=== PATIENT | male | born 1950 | race Caucasian/White ===

== ENCOUNTER 2017-01-06 00:25 | Emergency (ER) | payer OTHER ==
[~2017-01-06] VITALS: Ht 185.4 cm; Wt 93.0 kg
[2017-01-06 00:32] VITALS: BP 175/95; PULSE 76; RESP 20; TEMP 97.7; O2SAT 98
[2017-01-06] MEDS ORDERED: ZANT150T2 PO (00:42)
[2017-01-06] MEDS ORDERED: SODIUM CHLOR 0.9% 1000 ML INJ 1,000 ML IV ONE (00:54)
[2017-01-06] MEDS ORDERED: TAMSULOSIN HCL 0.4 MG CAP PO ONE (01:00)
[2017-01-06] MEDS ORDERED: KETOROLAC TROMETHAMINE 30 MG/ML (IVP) VIAL IV PUSH ONE (01:00)
[2017-01-06] MEDS ORDERED: SODIUM CHLORIDE 0.9% FLUSH 10 ML FLUSH IVF PRN (01:00)
[2017-01-06] MEDS ORDERED: HYDROmorphone HCL PF 1 MG/ML VIAL IV PUSH ONE (01:00)
[2017-01-06] MEDS ORDERED: ONDANSETRON HCL 4 MG/2 ML VIAL IV PUSH ONE (01:00)
--- NOTE | 2017-01-06 01:01 | PD ---
HPI Chief Complaint: Flank/Kidney Pain Time Seen by Provider: 00:51 Travel History International Travel<30 days: No Contact w/Intl Traveler<30days: No Traveled to known affect area: No History of Present Illness HPI The patient is a 66-year-old male that complains of sudden onset of left flank pain at approximately 11:30 tonight. He has never had a kidney stone previously. The pain is sharp, sudden onset and a 9/10 in intensity. He also has nausea and vomiting. About 6 years ago he had a right nephrectomy for renal carcinoma. PFSH Past Medical History Cancer: Yes (renal) Diminished Hearing: No Gastrointestinal Disorders: Yes GERD: Yes Genitourinary: Yes Kidney Stones: Yes Tetanus Vaccination: Unknown Influenza Vaccination: Yes Past Surgical History Abdominal Surgery: Yes (laparotomy for ulcers) Genitourinary Surgery: Yes (rt nephrectomy) Social History Alcohol Use: No Tobacco Use: No Substance Use: No Allergies-Medications (Allergen,Severity, Reaction): Coded Allergies: No Known Allergies (Verified Allergy, Unknown, 01/06/17) Reported Meds & Prescriptions Reported Meds & Active Scripts Active Reported Zantac (Ranitidine HCl) 150 Mg Tab 150 Mg PO DAILY Review of Systems Except as stated in HPI: all other systems reviewed are Neg Physical Exam Narrative GENERAL: The patient is alert, oriented 3 in moderate to severe distress with his left flank pain. His vital signs show blood pressure 175/95 but are otherwise normal. SKIN: Focused skin assessment warm/dry. HEAD: Atraumatic. Normocephalic. EYES: Pupils equal and round. No scleral icterus. No injection or drainage. ENT: No nasal bleeding or discharge. Mucous membranes pink and moist. NECK: Trachea midline. No JVD. CARDIOVASCULAR: Regular rate and rhythm. No murmur appreciated. RESPIRATORY: No accessory muscle use. Clear to auscultation. Breath sounds equal bilaterally. GASTROINTESTINAL: Abdomen soft, with minimal tenderness to direct palpation around the left leg, nondistended. Hepatic and splenic margins not palpable. No guarding or rebound is present. Specifically, no pulsatile masses are noted. MUSCULOSKELETAL: No obvious deformities. No clubbing. No cyanosis. No edema. NEUROLOGICAL: Awake and alert. No obvious cranial nerve deficits. Motor grossly within normal limits. Normal speech. PSYCHIATRIC: Appropriate mood and affect; insight and judgment normal. Data Data Last Documented VS Vital Signs Date Time Temp Pulse Resp B/P (MAP) Pulse Ox O2 Delivery O2 Flow Rate FiO2 01/06/17 01:20 71 18 153/82 (105) 98 Room Air 01/06/17 00:32 97.7 Orders Orders Complete Blood Count With Diff (01/06/17 00:54) Basic Metabolic Panel (Bmp) (01/06/17 00:54) Urinalysis - C+S If Indicated (01/06/17 00:54) Ct Abd/Pel W/O Iv Contrast (01/06/17 00:54) Ecg Monitoring (01/06/17 00:54) Iv Access Insert/Monitor (01/06/17 00:54) Ketorolac Inj (Toradol Inj) (01/06/17 01:00) Ondansetron Inj (Zofran Inj) (01/06/17 01:00) Sodium Chloride 0.9% Flush (Ns Flush) (01/06/17 01:00) Sodium Chlor 0.9% 1000 Ml Inj (Ns 1000 M (01/06/17 00:54) Hydromorphone Pf Inj (Dilaudid Pf Inj) (01/06/17 01:00) Tamsulosin (Flomax) (01/06/17 01:00) Labs Laboratory Tests Test 01/06/17 01:00 White Blood Count 7.8 TH/MM3 Red Blood Count 5.88 MIL/MM3 Hemoglobin 14.6 GM/DL Hematocrit 45.7 % Mean Corpuscular Volume 77.8 FL Mean Corpuscular Hemoglobin 24.8 PG Mean Corpuscular Hemoglobin Concent 31.9 % Red Cell Distribution Width 15.9 % Platelet Count 288 TH/MM3 Mean Platelet Volume 8.2 FL Neutrophils (%) (Auto) 65.0 % Lymphocytes (%) (Auto) 24.1 % Monocytes (%) (Auto) 7.4 % Eosinophils (%) (Auto) 2.7 % Basophils (%) (Auto) 0.8 % Neutrophils # (Auto) 4.9 TH/MM3 Lymphocytes # (Auto) 1.9 TH/MM3 Monocytes # (Auto) 0.6 TH/MM3 Eosinophils # (Auto) 0.2 TH/MM3 Basophils # (Auto) 0.1 TH/MM3 CBC Comment AUTO DIFF Blood Urea Nitrogen 19 MG/DL Creatinine 1.60 MG/DL Random Glucose 114 MG/DL Calcium Level 9.0 MG/DL Sodium Level 141 MEQ/L Potassium Level 4.1 MEQ/L Chloride Level 107 MEQ/L Carbon Dioxide Level 24.8 MEQ/L Anion Gap 9 MEQ/L Estimat Glomerular Filtration Rate 43 ML/MIN MDM Medical Decision Making Medical Screen Exam Complete: Yes Emergency Medical Condition: Yes Medical Record Reviewed: Yes Interpretation(s) The CT abdomen pelvis shows a 2 mm distal left ureteral calculus causing mild obstruction. The right kidney is surgically absent. Differential Diagnosis Left ureteral stone, abdominal aortic aneurysm-unlikely, urinary tract infection , dissecting aneurysm-extremely unlikely Narrative Course It is now 1:46 AM and the patient feels no pain. He likely passed this small 2 mm stone. The patient wants me to write medications in case the pain comes back and I will. Procedures EKG Prior to Arrival: No EKG Not Completed: EKG Not Medically Necessary Diagnosis Primary Impression: Right ureteral calculus Additional Instructions: If the pain returns, take the Motrin regularly, 1 tablet 3 times daily. Also take the Flomax regularly, 1 tablet by mouth daily. The rest of the medications are as needed, Percocet for pain every 4 hours and Zofran for nausea every 6 hours. Follow-up with her urologist if the pain returns. Med/Other Pt SpecificInfo: Prescription(s) given Scripts Ibuprofen (Ibuprofen) 800 Mg Tab 800 MG PO TID, #20 TAB 0 Refills Prov: Lenin Arrington MD 01/06/17 Ondansetron (Zofran) 4 Mg Tab 4 MG PO Q6HR Y for NAUSEA OR VOMITING, #15 TAB 0 Refills Prov: Lenin Arrington MD 01/06/17 Oxycodone-Acetaminophen (Percocet) 7.5-325 mg Tab 1 TAB PO Q4H Y for PAIN, #15 TAB 0 Refills Prov: Lenin Arrington MD 01/06/17 Tamsulosin (Flomax) 0.4 Mg Cap 0.4 MG PO HS for Manage Prostate Problems, #15 CAP 0 Refills Prov: Lenin Arrington MD 01/06/17 Disposition: 01 DISCHARGE HOME Condition: Stable Lenin Arrington MD Jan 06, 2017 01:01
[2017-01-06 01:12] LABS: AUTOMATED NEUTROPHIL # 4.9 TH/MM3 (1.8-7.7); BASOPHIL # 0.1 TH/MM3 (0-0.2); BASOPHIL % 0.8 % (0.0-2.0); EOSINOPHIL # 0.2 TH/MM3 (0-0.4); EOSINOPHIL % 2.7 % (0.0-4.0); HEMATOCRIT 45.7 % (39.0-51.0); LYMPH % 24.1 % (9.0-44.0); LYMPHOCYTE # 1.9 TH/MM3 (1.0-4.8); MEAN CELL VOLUME 77.8 FL (80.0-100.0); MEAN CORPUSCULAR HEMOGLOBIN 24.8 PG (27.0-34.0); MEAN CORPUSCULAR HGB CONC 31.9 % (32.0-36.0); MONO % 7.4 % (0.0-8.0); PLATELET COUNT 288 TH/MM3 (150-450); RED BLOOD COUNT 5.88 MIL/MM3 (4.50-5.90); RED CELL DISTRIBUTION WIDTH 15.9 % (11.6-17.2); WHITE BLOOD COUNT 7.8 TH/MM3 (4.0-11.0)
[2017-01-06 01:20] VITALS: BP 153/82; PULSE 71; RESP 18; O2SAT 98
[2017-01-06 01:20] LABS: POTASSIUM 4.1 MEQ/L (3.5-5.1)
[2017-01-06 01:22] LABS: BICARBONATE 24.8 MEQ/L (21.0-32.0)
[2017-01-06 01:24] LABS: HEMO FLAGS AUTO DIFF
--- NOTE | 2017-01-06 01:32 | RADRPT ---
EXAM DATE/TIME: 01/06/2017 01:10 [facility] COMPARISON: No previous studies available for comparison. INDICATIONS : Left flank pain. ORAL CONTRAST: No oral contrast ingested. RADIATION DOSE: 22.53 CTDIvol (mGy) MEDICAL HISTORY : None SURGICAL HISTORY : Nephrectomy, right. ENCOUNTER: Initial ACUITY: 1 day PAIN SCALE: 9/10 LOCATION: Left flank TECHNIQUE: Volumetric scanning of the abdomen and pelvis was performed. Using automated exposure control and ad justment of the mA and/or kV according to patient size, radiation dose was kept as low as reasonably achievable to obtain optimal diagnostic quality images. DICOM format image data is available electro nically for review and comparison. FINDINGS: LOWER LUNGS: The visualized lower lungs are clear. LIVER: Homogeneous density without lesion. There is no dilation of the biliary tree. Cholecystectomy clips. SPLEEN: Normal size without lesion. PANCREAS: Within normal limits. KIDNEYS: The left kidney show some mild hydronephrosis. There is a 2 mm stone in the distal left ureter causin g only mild hydroureter. Right kidney surgically absent ADRENAL GLANDS: Within normal limits. VASCULAR: There is no aortic aneurysm. BOWEL/MESENTERY: Suspect a gastrojejunostomy. ABDOMINAL WALL: Within normal limits. Old ostomy in the right side of the abdomen. Some atrophy of the rectus muscula ture RETROPERITONEUM: There is no lymphadenopathy. BLADDER: No wall thickening or mass. REPRODUCTIVE: Within normal limits. INGUINAL: There is no lymphadenopathy or hernia. MUSCULOSKELETAL: Marked sclerosis throughout the lumbar spine. CONCLUSION: 2 mm distal left ureteral calculus causing mild obstruction. Right kidney surgically absent. Suspect a gastrojejunostomy. Rodger Tellez MD on January 06, 2017 at 1:28 Board Certified Radiologist. This report was verified electronically.
[2017-01-06] MEDS ORDERED: TAMS5CAP PO (01:50)
[2017-01-06] MEDS ORDERED: PERC7.5T13 PO (01:50)
[2017-01-06] MEDS ORDERED: IBUP1TAB7 PO (01:50)
[2017-01-06] MEDS ORDERED: ZOFR4TAB PO (01:50)
[2017-01-06 01:53] LABS: PLATELET ESTIMATE SMEAR NORMAL (NORMAL); PLATELET MORPHOLOGY CLUMPED (NORMAL); SCAN/DIFF AUTO DIFF CONFIRMED
[2017-01-06] MEDS ORDERED: ALUMINUM/MAGNESIUM/SIMETH 30 ML CUP PO ONE (02:00)
[2017-01-06 02:12] VITALS: BP 132/84; PULSE 74; RESP 18; O2SAT 98
== END 2017-01-06 02:14 | disposition home or self-care (01) ==
LOC: PHED 00:25
DX: N20.1 Calculus of ureter (principal); Z85.520 Personal history of malignant carcinoid tumor of kidney
CPT/HCPCS: 74176; 80048; 85025; 96361; 96374; 96375; 99285; J1170; J1885; J2405; J7030

== ENCOUNTER 2017-06-04 20:51 | Emergency (ER) | payer OTHER ==
[~2017-06-04] VITALS: Ht 185.4 cm; Wt 90.1 kg
[~2017-06-04 20:51] MED LIST: IBUP1TAB7 PO; PERC7.5T13 PO; TAMS5CAP PO; ZANT150T2 PO; ZOFR4TAB PO
[2017-06-04 20:55] VITALS: BP 145/64; PULSE 111; RESP 18; TEMP 98.4; O2SAT 96
[2017-06-04] MEDS ORDERED: ONDANSETRON HCL 4 MG/2 ML VIAL IV PUSH ONE (21:45)
[2017-06-04] MEDS ORDERED: SODIUM CHLOR 0.9% 1000 ML INJ 1,000 ML IV ONE (21:45)
[2017-06-04 22:00] VITALS: BP 127/77; PULSE 108; RESP 18; O2SAT 92
--- NOTE | 2017-06-04 22:15 | PD ---
HPI Chief Complaint: GI Complaint Time Seen by Provider: 21:30 Travel History International Travel<30 days: No Contact w/Intl Traveler<30days: No Traveled to known affect area: No History of Present Illness HPI 66-year-old male who presents to emergency room with complaints of not feeling well, patient reports that he has not been feeling well yesterday. Patient reports that today, he felt fine all morning, 1 hour prior to coming to emergency room he felt "shaky" in his arms, reports that he felt nauseous and vomited 3 times. Patient reports that he has no pain at this time, reports that he just does not feel well. Patient denies any chest pain or shortness of breath, denies any abdominal pain. Denies headache or dizziness . patient denies any cough or congestion, no sick contacts. Patient reports that he does have one kidney as he has history of kidney cancer in the past. Patient cannot localize why he is not feeling well. PFSH Past Medical History Cancer: Yes (renal) Diminished Hearing: No Gastrointestinal Disorders: Yes GERD: Yes Genitourinary: Yes Kidney Stones: Yes Past Surgical History Abdominal Surgery: Yes (laparotomy for ulcers) Genitourinary Surgery: Yes (rt nephrectomy) Social History Alcohol Use: No Tobacco Use: No Substance Use: No Allergies-Medications (Allergen,Severity, Reaction): Coded Allergies: No Known Allergies (Verified Allergy, Unknown, 06/04/17) Reported Meds & Prescriptions Reported Meds & Active Scripts Active Flomax (Tamsulosin HCl) 0.4 Mg Cap 0.4 Mg PO HS Reported Amlodipine (Amlodipine Besylate) 5 Mg Tab 5 Mg PO DAILY Pantoprazole (Pantoprazole Sodium) 40 Mg Tab 40 Mg PO DAILY Tylenol (Acetaminophen) 325 Mg Tab 650 Mg PO Q6H PRN Review of Systems General / Constitutional: Positive: Chills, No: Fever Eyes: No: Visual changes HENT: No: Headaches Cardiovascular: No: Chest Pain or Discomfort Respiratory: No: Cough, Shortness of Breath Gastrointestinal: Positive: Nausea, Vomiting, No: Diarrhea, Abdominal Pain Genitourinary: No: Dysuria Musculoskeletal: No: Pain Skin: No Rash Neurologic: Positive: Weakness Psychiatric: No: Depression Endocrine: No: Polydipsia Hematologic/Lymphatic: No: Easy Bruising Physical Exam Narrative GENERAL: Moderate distress SKIN: Focused skin assessment warm/dry. HEAD: Atraumatic. Normocephalic. EYES: Pupils equal and round. No scleral icterus. No injection or drainage. ENT: No nasal bleeding or discharge. Mucous membranes pink and moist. NECK: Trachea midline. No JVD. CARDIOVASCULAR: Tachycardia. No murmur appreciated. RESPIRATORY: No accessory muscle use. Clear to auscultation. Breath sounds equal bilaterally. GASTROINTESTINAL: Abdomen soft, non-tender, nondistended. Hepatic and splenic margins not palpable. MUSCULOSKELETAL: No obvious deformities. No clubbing. No cyanosis. No edema. NEUROLOGICAL: Awake and alert. No obvious cranial nerve deficits. Motor grossly within normal limits. Normal speech. PSYCHIATRIC: Anxious mood and affect; insight and judgment normal. Data Data Last Documented VS Vital Signs Date Time Temp Pulse Resp B/P (MAP) Pulse Ox O2 Delivery O2 Flow Rate FiO2 06/04/17 22:56 108 18 127/70 (89) 93 Room Air 06/04/17 20:55 98.4 Orders Orders Electrocardiogram (06/04/17 21:38) Complete Blood Count With Diff (06/04/17 21:38) Comprehensive Metabolic Panel (06/04/17 21:38) Prothrombin Time / Inr (Pt) (06/04/17 21:38) Act Partial Throm Time (Ptt) (06/04/17 21:38) Lactic Acid Sepsis Protocol (06/04/17 21:38) Magnesium (Mg) (06/04/17 21:38) Lipase (06/04/17 21:38) Urinalysis - C+S If Indicated (06/04/17 21:38) Influenzae A/B Antigen (06/04/17 21:38) Blood Culture (06/04/17 21:38) Chest, Single Ap (06/04/17 21:38) Sodium Chlor 0.9% 1000 Ml Inj (Ns 1000 M (06/04/17 21:45) Ondansetron Inj (Zofran Inj) (06/04/17 21:45) Labs Laboratory Tests Test 06/04/17 22:05 06/04/17 22:35 White Blood Count 6.4 TH/MM3 Red Blood Count 5.34 MIL/MM3 Hemoglobin 14.2 GM/DL Hematocrit 44.3 % Mean Corpuscular Volume 83.0 FL Mean Corpuscular Hemoglobin 26.7 PG Mean Corpuscular Hemoglobin Concent 32.1 % Red Cell Distribution Width 15.6 % Platelet Count 194 TH/MM3 Mean Platelet Volume 7.8 FL Neutrophils (%) (Auto) 83.0 % Lymphocytes (%) (Auto) 4.5 % Monocytes (%) (Auto) 5.1 % Eosinophils (%) (Auto) 0.9 % Basophils (%) (Auto) 6.5 % Neutrophils # (Auto) 5.3 TH/MM3 Lymphocytes # (Auto) 0.3 TH/MM3 Monocytes # (Auto) 0.3 TH/MM3 Eosinophils # (Auto) 0.1 TH/MM3 Basophils # (Auto) 0.4 TH/MM3 CBC Comment AUTO DIFF Differential Total Cells Counted 100 Neutrophils % (Manual) 87 % Band Neutrophils % 3 % Lymphocytes % 4 % Monocytes % 4 % Eosinophils % 1 % Neutrophils # (Manual) 5.8 TH/MM3 Metamyelocytes 1 % Differential Comment FINAL DIFF MANUAL Platelet Estimate NORMAL Platelet Morphology Comment NORMAL Red Cell Morphology Comment NORMAL Prothrombin Time 11.3 SEC Prothromb Time International Ratio 1.1 RATIO Activated Partial Thromboplast Time 22.3 SEC Blood Urea Nitrogen 17 MG/DL Creatinine 1.30 MG/DL Random Glucose 122 MG/DL Total Protein 7.3 GM/DL Albumin 3.2 GM/DL Calcium Level 8.8 MG/DL Magnesium Level 1.8 MG/DL Alkaline Phosphatase 135 U/L Aspartate Amino Transf (AST/SGOT) 31 U/L Alanine Aminotransferase (ALT/SGPT) 39 U/L Total Bilirubin 0.8 MG/DL Sodium Level 140 MEQ/L Potassium Level 3.7 MEQ/L Chloride Level 108 MEQ/L Carbon Dioxide Level 24.0 MEQ/L Anion Gap 8 MEQ/L Estimat Glomerular Filtration Rate 55 ML/MIN Lactic Acid Level 1.6 mmol/L Lipase 100 U/L Urine Collection Type CLEAN CATCH Urine Color YELLOW Urine Turbidity CLEAR Urine pH 5.0 Urine Specific [place] 1.020 Urine Protein NEG mg/dL Urine Glucose (UA) NEG mg/dL Urine Ketones NEG mg/dL Urine Occult Blood TRACE Urine Nitrite NEG Urine Bilirubin NEGATIVE Urine Urobilinogen 0.2 MG/DL Urine Leukocyte Esterase NEGATIVE Urine RBC 0-3 /hpf Urine WBC 0-2 /hpf Urine Squamous Epithelial Cells 0-5 /hpf Microscopic Urinalysis Comment CULT NOT INDICATED MDM Medical Decision Making Medical Screen Exam Complete: Yes Emergency Medical Condition: Yes Medical Record Reviewed: Yes Interpretation(s) EKG at 2147: Sinus tachycardia at 1 1 1 bpm, QT/QTc 297/362, no acute ST-T wave changes Vital Signs Date Time Temp Pulse Resp B/P (MAP) Pulse Ox O2 Delivery O2 Flow Rate FiO2 06/04/17 20:55 98.4 111 18 145/64 (91) 96 Differential Diagnosis Sepsis, bacteremia, pneumonia, influenza, electrolyte abnormality, UTI Narrative Course 66-year-old male presents to emergency room with complaints of not feeling well yesterday, reports that 1 hour prior to presentation to the emergency room, began to have shaking in both arms, he felt nauseous and vomited 3 times. Overall, patient reports that he is feeling uncomfortable, patient denies any headache or dizziness, denies any chest pain or shortness of breath, denies any abdominal pain, patient cannot tell me why he is not feeling well. Patient is tachycardic in the emergency room, lab work including lactic acid as well as blood cultures ordered. During the course of the patients emergency department visit, the patients history, examination, and differential diagnosis were reviewed with the patient. The patient was placed on a patient monitor with oximetry and frequent blood pressure monitoring. The patient had an IV access obtained and blood work sent for analysis. The patient was initially provided IV fluids. The patients laboratory studies were reviewed and remarkable for: Laboratory Tests Test 06/04/17 22:05 06/04/17 22:35 White Blood Count 6.4 TH/MM3 (4.0-11.0) Red Blood Count 5.34 MIL/MM3 (4.50-5.90) Hemoglobin 14.2 GM/DL (13.0-17.0) Hematocrit 44.3 % (39.0-51.0) Mean Corpuscular Volume 83.0 FL (80.0-100.0) Mean Corpuscular Hemoglobin 26.7 PG (27.0-34.0) Mean Corpuscular Hemoglobin Concent 32.1 % (32.0-36.0) Red Cell Distribution Width 15.6 % (11.6-17.2) Platelet Count 194 TH/MM3 (150-450) Mean Platelet Volume 7.8 FL (7.0-11.0) Neutrophils (%) (Auto) 83.0 % (16.0-70.0) Lymphocytes (%) (Auto) 4.5 % (9.0-44.0) Monocytes (%) (Auto) 5.1 % (0.0-8.0) Eosinophils (%) (Auto) 0.9 % (0.0-4.0) Basophils (%) (Auto) 6.5 % (0.0-2.0) Neutrophils # (Auto) 5.3 TH/MM3 (1.8-7.7) Lymphocytes # (Auto) 0.3 TH/MM3 (1.0-4.8) Monocytes # (Auto) 0.3 TH/MM3 (0-0.9) Eosinophils # (Auto) 0.1 TH/MM3 (0-0.4) Basophils # (Auto) 0.4 TH/MM3 (0-0.2) CBC Comment AUTO DIFF Differential Total Cells Counted 100 Neutrophils % (Manual) 87 % (16-70) Band Neutrophils % 3 % (0-6) Lymphocytes % 4 % (9-44) Monocytes % 4 % (0-8) Eosinophils % 1 % (0-4) Neutrophils # (Manual) 5.8 TH/MM3 (1.8-7.7) Metamyelocytes 1 % (0-1) Differential Comment FINAL DIFF MANUAL Platelet Estimate NORMAL (NORMAL) Platelet Morphology Comment NORMAL (NORMAL) Red Cell Morphology Comment NORMAL (NORMAL) Prothrombin Time 11.3 SEC (9.8-11.6) Prothromb Time International Ratio 1.1 RATIO Activated Partial Thromboplast Time 22.3 SEC (24.3-30.1) Blood Urea Nitrogen 17 MG/DL (7-18) Creatinine 1.30 MG/DL (0.60-1.30) Random Glucose 122 MG/DL (74-106) Total Protein 7.3 GM/DL (6.4-8.2) Albumin 3.2 GM/DL (3.4-5.0) Calcium Level 8.8 MG/DL (8.5-10.1) Magnesium Level 1.8 MG/DL (1.5-2.5) Alkaline Phosphatase 135 U/L (45-117) Aspartate Amino Transf (AST/SGOT) 31 U/L (15-37) Alanine Aminotransferase (ALT/SGPT) 39 U/L (12-78) Total Bilirubin 0.8 MG/DL (0.2-1.0) Sodium Level 140 MEQ/L (136-145) Potassium Level 3.7 MEQ/L (3.5-5.1) Chloride Level 108 MEQ/L (98-107) Carbon Dioxide Level 24.0 MEQ/L (21.0-32.0) Anion Gap 8 MEQ/L (5-15) Estimat Glomerular Filtration Rate 55 ML/MIN (>89) Lactic Acid Level 1.6 mmol/L (0.4-2.0) Lipase 100 U/L (73-393) Urine Collection Type CLEAN CATCH Urine Color YELLOW (YELLW/STRAW) Urine Turbidity CLEAR (CLEAR) Urine pH 5.0 (5.0-8.5) Urine Specific [place] 1.020 (1.002-1.035) Urine Protein NEG mg/dL (NEG-TRACE) Urine Glucose (UA) NEG mg/dL (NEG) Urine Ketones NEG mg/dL (NEG) Urine Occult Blood TRACE (NEG) Urine Nitrite NEG (NEG) Urine Bilirubin NEGATIVE (NEG) Urine Urobilinogen 0.2 MG/DL (LESS THAN Urine Leukocyte Esterase NEGATIVE (NEG) Urine RBC 0-3 /hpf (0-3) Urine WBC 0-2 /hpf (0-5) Urine Squamous Epithelial Cells 0-5 /hpf (0-5) Microscopic Urinalysis Comment CULT NOT INDICATED Lactic acid 1.6 Radiology studies were reviewed and remarkable for: Last Impressions Chest X-Ray 06/04/172137 Signed Impressions: Service Date/Time: Friday, June 04, 2017 21:45 - CONCLUSION: 1. Minimal basilar atelectasis. No effusion or pneumothorax. Jone Singleton MD All labs and all studies reviewed, I am unsure as to why patient is feeling shaky with an episode of nausea and vomiting and why he felt "shaky" in his arms. Patient is feeling better at this time, patient has resolution of symptoms. Discussed with him need to follow up with his primary care doctor. He will follow up with all cultures from today. Signs and symptoms of when to return to the ER was reviewed with patient in detail. Diagnosis Primary Impression: Generalized weakness Patient Instructions: General Instructions Additional Instructions: Please provide patient with a copy of their lab work and studies at discharge* * Please follow up with your primary care doctor in 1-2 days Return to the ER if symptoms worsen or progress Return to the ER as needed Please follow up with all cultures from today Disposition: 01 DISCHARGE HOME Condition: Stable Layla Omer DO Jun 04, 2017 22:15
[2017-06-04 22:18] LABS: AUTOMATED NEUTROPHIL # 5.3 TH/MM3 (1.8-7.7); BASOPHIL # 0.4 TH/MM3 (0-0.2); BASOPHIL % 6.5 % (0.0-2.0); EOSINOPHIL # 0.1 TH/MM3 (0-0.4); EOSINOPHIL % 0.9 % (0.0-4.0); HEMATOCRIT 44.3 % (39.0-51.0); HEMOGLOBIN 14.2 GM/DL (13.0-17.0); LYMPH % 4.5 % (9.0-44.0); LYMPHOCYTE # 0.3 TH/MM3 (1.0-4.8); MEAN CORPUSCULAR HEMOGLOBIN 26.7 PG (27.0-34.0); MEAN CORPUSCULAR HGB CONC 32.1 % (32.0-36.0); MEAN PLATELET VOLUME 7.8 FL (7.0-11.0); MONO % 5.1 % (0.0-8.0); MONOCYTE # 0.3 TH/MM3 (0-0.9); PLATELET COUNT 194 TH/MM3 (150-450); RED BLOOD COUNT 5.34 MIL/MM3 (4.50-5.90); RED CELL DISTRIBUTION WIDTH 15.6 % (11.6-17.2); WHITE BLOOD COUNT 6.4 TH/MM3 (4.0-11.0)
--- NOTE | 2017-06-04 22:23 | RADRPT ---
EXAM DATE/TIME: 06/04/2017 21:45 [facility] COMPARISON: No previous studies available for comparison. INDICATIONS : Short of breath. MEDICAL HISTORY : None. SURGICAL HISTORY : Nephrectomy, right. ENCOUNTER: Initial ACUITY: 1 day PAIN SCORE: 6/10 LOCATION: Bilateral chest FINDINGS: A single view of the chest demonstrates minimal basilar atelectasis. No effusion. No pneumothorax. He art size within normal limits. Tortuous aorta. CONCLUSION: 1. Minimal basilar atelectasis. No effusion or pneumothorax. Jone Singleton MD on June 04, 2017 at 22:20 Board Certified Radiologist. This report was verified electronically.
[2017-06-04 22:25] LABS: CHLORIDE 108 MEQ/L (98-107); SODIUM (NA) 140 MEQ/L (136-145)
[2017-06-04 22:28] LABS: CALCIUM 8.8 MG/DL (8.5-10.1)
[2017-06-04 22:29] LABS: ALBUMIN 3.2 GM/DL (3.4-5.0); BLOOD UREA NITROGEN 17 MG/DL (7-18); GLUCOSE,RANDOM 122 MG/DL (74-106); MAGNESIUM 1.8 MG/DL (1.5-2.5)
[2017-06-04 22:32] LABS: ALT (GPT) 39 U/L (12-78); AST (GOT) 31 U/L (15-37); GLOMERULAR FILTRATION RATE 55 ML/MIN (>89)
[2017-06-04 22:33] LABS: TOTAL BILIRUBIN ADULT 0.8 MG/DL (0.2-1.0); TOTAL PROTEIN 7.3 GM/DL (6.4-8.2)
[2017-06-04 22:35] LABS: ALKALINE PHOSPHATASE 135 U/L (45-117); INTERNATIONAL NORMALIZED RATIO 1.1 RATIO; PROTHROMBIN TIME - PATIENT 11.3 SEC (9.8-11.6)
[2017-06-04 22:50] LABS: BANDS 3 % (0-6); LYMPHOCYTES 4 % (9-44); METAMYELOCYTES 1 % (0-1); MONOCYTES 4 % (0-8); NEUTROPHIL # MANUAL DIFF 5.8 TH/MM3 (1.8-7.7); POLYS (SEG NEUTROPHILS) 87 % (16-70)
[2017-06-04] MEDS ORDERED: OMEP20TA93 PO (22:54)
[2017-06-04] MEDS ORDERED: BP MED PO (22:54)
[2017-06-04] MEDS ORDERED: TYLE325T PO (22:54)
[2017-06-04 22:56] VITALS: BP 127/70; PULSE 108; RESP 18; O2SAT 93
[2017-06-04 22:57] LABS: URINE COLOR YELLOW (YELLW/STRAW)
[2017-06-04 22:58] LABS: BILIRUBIN, URINE NEGATIVE (NEG); BLOOD, URINE TRACE (NEG); GLUCOSE,URINE NEG (NEG); KETONE, URINE NEG (NEG); NITRITE,URINE NEG (NEG); URINE LEUKOCYTE ESTERASE NEGATIVE (NEG)
[2017-06-04 23:05] LABS: RBC, URINE 0-3 /hpf (0-3); SQUAMOUS EPITHELIAL CELL URINE 0-5 /hpf (0-5); WBC, URINE 0-2 /hpf (0-5)
[2017-06-04] MEDS ORDERED: PANT40TA3 PO (23:22)
[2017-06-04] MEDS ORDERED: AMLO5TAB2 PO (23:22)
[2017-06-05] MEDS ORDERED: ACETAMINOPHEN 325 MG TAB PO ONE (00:15)
[2017-06-05 00:30] VITALS: BP 105/71
--- NOTE | 2017-06-05 20:50 | EKG ---
Date Performed: 06/04/2017 Time Performed: 21:47:14 PTAGE: 66 years EKG: SINUS TACHYCARDIA WITH FIRST DEGREE AV BLOCK INFERIOR MYOCARDIAL INFARCTION Compared to pre vious tracing, sinus rate is faster ABNORMAL ECG PREVIOUS TRACING : 10/12/2003 07.54 DOCTOR: Alex Lind Interpretating Date/Time 06/05/2017 20:48:59
== END 2017-06-05 00:36 | disposition home or self-care (01) ==
LOC: PHED 20:51
DX: R53.1 Weakness (principal); J98.11 Atelectasis; R11.2 Nausea with vomiting, unspecified; K21.9 Gastro-esophageal reflux disease without esophagitis; R00.0 Tachycardia, unspecified; I44.0 Atrioventricular block, first degree; I25.2 Old myocardial infarction; R94.31 Abnormal electrocardiogram [ECG] [EKG]; Z85.528 Personal history of other malignant neoplasm of kidney
CPT/HCPCS: 71045; 80053; 81001; 83605; 83690; 83735; 85007; 85027; 85610; 85730; 87040; 87804; 93005; 96360; 99285; J2405; J7030